=== PATIENT | male | born 1990 | race Caucasian/White ===

== ENCOUNTER 2018-09-07 12:44 | Emergency (ER) | payer SELFPAY ==
[~2018-09-07] VITALS: Ht 167.6 cm; Wt 55.6 kg
[2018-09-07 12:49] VITALS: BP 132/76; PULSE 86; RESP 16; Ht 167.6 cm; Wt 55.6 kg
[2018-09-07] MEDS ORDERED: CYCL10TA7 PO (13:34)
[2018-09-07] MEDS ORDERED: NAPR-985 PO (13:34)
--- NOTE | 2018-09-07 15:49 | ERD ---
ER Documentation Chief Complaint Chief Complaint R shoulder/ neck pain x2-3mo. 'muscle pain'. worse w mvmt. NAD. HPI 27-year-old male presenting with pain to his right shoulder. Patient states that he feels it is not his shoulder and is been going on for the last 2 to 3 months. He states it hurts to move and he feels spasms. He has not taken medications for symptoms. Occasionally he feels some mild chest pain but denies any shortness of breath and is states that spontaneously resolves. Denies medical problems. NKDA. Surgical history denies. Social history smokes marijuana and cigarettes occasionally. Drug use denies ROS All systems reviewed and are negative except as per history of present illness. Medications Home Meds Active Scripts Cyclobenzaprine Hcl* (Cyclobenzaprine Hcl*) 10 Mg Tablet, 10 MG PO TID, #15 TAB Prov:JAYLEEN BLAS PA-C 09/07/18 Naproxen* (Naprosyn*) 500 Mg Tablet, 500 MG PO BID PRN for PAIN AND/OR INFLAMMATION, #30 TAB Prov:JAYLEEN BLAS PA-C 09/07/18 Allergies Allergies: Coded Allergies: No Known Allergy (Unverified , 09/07/18) PMhx/Soc Medical and Surgical Hx: pt denies Medical Hx, pt denies Surgical Hx Hx Alcohol Use: No Hx Substance Use: No Hx Tobacco Use: Yes Smoking Status: Current some day smoker FmHx Family History: No diabetes, No coronary disease, No other Physical Exam Vitals Vital Signs Date Temp Pulse Resp B/P (MAP) Pulse Ox O2 O2 Flow FiO2 Time Delivery Rate 09/07/18 98.1 86 16 132/76 98 12:49 (94) Physical Exam GENERAL: The patient is well-appearing, well-nourished, in no acute distress NECK: C-spine is soft and supple. There is no meningismus. There is no cer vical lymphadenopathy. No JVD. No bruits. No goiter. CHEST: Clear to auscultation bilaterally. There are no rales, wheezes or rhonchi. HEART: Regular rate and rhythm. No murmurs, clicks, rubs or gallops. ABDOMEN:Soft, nontender and nondistended. Good bowel sounds. No rebound or guarding. No gross peritonitis. No gross organomegaly or masses. BACK: Mild tenderness to palpation over the right paraspinous muscles adjacent to the scapula. EXTREMITIES: Equal pulses bilaterally. There is no peripheral clubbing, cyanosis or edema. No focal swelling or erythema. Full range of motion. Grossly neurovascularly intact. NEUROLOGIC: Alert and oriented. Cranial nerves II through XII intact. Motor strength in all 4 extremities with 5 out of 5 strength. Sensation grossly intact. Normal speech and gait. Babinski negative. DTR 2+ throughout. SKIN: There is no apparent rash or petechiae. The skin is warm and dry. Procedures/MDM DIAGNOSTIC IMAGING REPORT Patient: JAKY CORDERO : 1990 Age: 27 Sex: M MR #: [id number] DOS: 09/07/18 1308 Ordering MD: CYNDI BLAS PA-C Location: [facility] Room/Bed: PROCEDURE: XR chest. CLINICAL INDICATION: Cough TECHNIQUE: A single portable view of the chest was obtained. COMPARISON: None. FINDINGS: The lungs are clear. There is no pleural effusion or pneumothorax. The cardiac and mediastinal contours are within normal limits. IMPRESSION: 1. No acute pulmonary abnormality. MDM: 27-year-old male presenting with right back pain. Patient has pain over the rhomboid region of the right side. I have low suspicion for cardiac or pulmonary abnormalities. Patient is discharged with strict ER precautions and told to follow-up with primary care within 1 to 2 days for close evaluation. Patient is recommended to massage the area to help alleviate muscle use. All questions answered at discharge Departure Diagnosis: Primary Impression: Muscle spasm Condition: Stable Patient Instructions: Muscle Spasm Referrals: [facility] YOU HAVE RECEIVED A MEDICAL SCREENING EXAM AND THE RESULTS INDICATE THAT YOU DO NOT HAVE A CONDITION THAT REQUIRES URGENT TREATMENT IN THE EMERGENCY DEPARTMENT. FURTHER EVALUATION AND TREATMENT OF YOUR CONDITION CAN WAIT UNTIL YOU ARE SEEN IN YOUR DOCTORS OFFICE WITHIN THE NEXT 1-2 DAYS. IT IS YOUR RESPONSIBILITY TO MAKE AN APPOINTMENT FOR FOLOW-UP CARE. IF YOU HAVE A PRIMARY DOCTOR --you should call your primary doctor and schedule an appointment IF YOU DO NOT HAVE A PRIMARY DOCTOR YOU CAN CALL OUR PHYSICIAN REFERRAL HOTLINE AT IF YOU CAN NOT AFFORD TO SEE A PHYSICIAN YOU CAN CHOSE FROM THE FOLLOWING [facility] [address] [facility] [address] [facility] [address] [facility] [address] [facility] [address] [facility]. [facility] [address] Additional Instructions: FOLLOW UP WITH YOUR PRIMARY CARE PHYSICIAN TOMORROW.Return to this facility if you are not improving as expected. JAYLEEN BLAS PA-C Sep 07, 2018 15:49
== END 2018-09-07 14:05 | disposition home or self-care (01) ==
LOC: FTE 12:44
DX: M62.838 Other muscle spasm (principal); F17.210 Nicotine dependence, cigarettes, uncomplicated
CPT/HCPCS: 71045